=== PATIENT | female | born 2000 | race Caucasian/White ===

== ENCOUNTER 2020-09-20 14:53 | Emergency (ER) | payer BC, SELFPAY ==
[2020-09-20] VITALS (14 sets, daily range): BP systolic 103–117; BP diastolic 59–87; PULSE 67–91; RESP 11–21; TEMP 36.7; O2SAT 79–100
--- NOTE | ~2020-09-20 | CT_ITS ---
EXAMINATION: CT abdomen pelvis w con DATE: 09/20/2020 17:12 INDICATION: Lower abdominal pain TECHNIQUE: Computed tomography (CT) of the abdomen and pelvis was performed with 100 mL Omnipaque-350 intravenous contrast. Automated exposure control and iterative reconstruction technique were employe d. The dose-length product was 174.20 mGy-cm. COMPARISON: None FINDINGS: Lung bases are clear. Heart size is normal. No pericardial or pleural effusion. Liver, gallbladder, s pleen, pancreas, bilateral adrenal glands and kidneys are normal. Bowels including the appendix are n ormal. No obstruction or abnormal bowel wall thickening. Bladder, anteverted uterus and right adnexa are unremarkable. Peripheral enhancement at a 1.9 cm likely left ovarian corpus luteum cyst. Small am ount of likely physiologic free fluid in the cul-de-sac. No abscess or free intraperitoneal gas. No p athologically enlarged abdominal or pelvic lymphadenopathy. Bones are unremarkable. IMPRESSION: 1. 1.9 cm likely corpus luteum cyst at the left ovary with small amount of likely physiologic free fl uid in the pelvis. No other acute intra-abdominal/pelvic process. Reviewed, dictated and finalized at location A. IMPRESSION: 1. 1.9 cm likely corpus luteum cyst at the left ovary with small amount of like ly physiologic free fluid in the pelvis. No other acute intra-abdominal/pelvic process.
--- NOTE | ~2020-09-20 | US_ITS ---
EXAMINATION: US pelvic complete DATE: 09/20/2020 16:03 INDICATION: Pelvic pain Comparison:No prior studies for comparison TECHNIQUE: Multiple transabdominal sonographic images of the pelvis performed. Patient refused transv aginal examination. FINDINGS: The uterus measures 6.7 x 3 x 5 cm. The endometrial complex measures 6 mm. The right ovary measures 1.9 x 1.4 x 1.6 cm and the left ovary measures 3 x 2.2 x 2.5 cm. There are small follicles in each ovary. Normal doppler signal in both ovaries. There is no free fluid in the pelvis. There are no abnormal masses seen on either side. IMPRESSION: 1. Normal pelvic ultrasound. Reviewed, dictated and finalized at location B.
--- NOTE | 2020-09-20 15:13 | ED.GENADULT ---
HPI - General Adult General Chief complaint: Abdominal Pain Stated complaint: abdominal pain Time Seen by Provider: 09/20/20 15:05 Source: RN notes reviewed History of Present Illness HPI narrative: Patient presents emergency department from home for abdominal pain. Patient states symptoms initially began approximately 2 weeks ago and were intermittent have become more constant the pain is located in the bilateral lower abdomen described as sharp and stabbing denies any fevers or chills chest pain shortness of breath nausea vomiting diarrhea or any other symptoms states she is taken no pain medication for the symptoms today Related Data Home Medications Medication Instructions Recorded Confirmed ondansetron 09/20/20 topiramate 25 mg tablet 25 mg PO DAILY 09/20/20 Allergies Allergy/AdvReac Type Severity Reaction Status Date / Time ciprofloxacin Allergy Unknown Rash Verified 09/20/20 15:12 lidocaine Allergy Unknown Nausea and Verified 09/20/20 15:12 Vomiting Review of Systems Review of Systems: Narrative: Gen.: Denies fevers or chills ENT: Denies congestion Respiratory: Denies shortness of breath or cough CV: Denies chest pain or palpitations GI: See HPI denies burning, urgency, frequency or hematuria Musculoskeletal: Denies back pain or muscle pain Neuro: Denies numbness, tingling, weakness or focal weakness Skin: Denies rash Except as documented, all other systems reviewed and negative [facility] Past Medical History Medical History (Updated 09/20/20 @ 17:25 by Edgar Ventura DO) 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 Family History Family History Father Hypertension Social History Social History Smoking status: Never smoker Alcohol intake: current Substance use: never Substance use type: marijuana Gender identity (if verbalized by the patient): Female Exam Narrative: Exam Narrative: APPEARANCE: No acute distress, nontoxic, resting in bed HEENT: Normocephalic, atraumatic, OMM RESPIRATORY: No respiratory distress, clear to auscultation bilaterally with no rhonchi wheezing or rales CARDIOVASCULAR: RRR s murmur ABDOMINAL: Soft nondistended, tender palpation right lower quadrant left lower quadrant no tenderness left lower quadrant and right upper quadrant no rebound or guarding MUSCULOSKELETAl: Moves all extremities. No clubbing, cyanosis or edema. NEURO: Awake and alert. Following commands, speech normal, no focal deficits SKIN:: Warm, dry. Normal Color PSYCHIATRIC: Normal affect/mood Course Course Emergency Course: Patient states that they are feeling much better at this time. States abdominal pain has improved. Repeat abdominal exam shows the patient's abdomen to be soft with no surgical abdomen present. Discussed with patient results of workup and diagnosis. Discussed need for follow-up with primary care physician, reasons to return to the emergency department in proper use of medication. Patient understands and agrees to current treatment plan patient states she has an upcoming appointment Dr. Strauss Vital Signs Vital signs: Vital Signs Temperature 98.0 F 09/20/20 15:08 Pulse Rate 88 09/20/20 15:08 Respiratory Rate 18 09/20/20 15:08 Blood Pressure 115/63 09/20/20 15:08 Pulse Oximetry 98 09/20/20 15:08 Temperature 98.0 F 09/20/20 15:08 Pulse Rate 79 09/20/20 15:36 Respiratory Rate 21 H 09/20/20 15:36 Blood Pressure 109/64 09/20/20 15:36 Pulse Oximetry 99 09/20/20 15:36 Medical Decision Making MDM Narrative Medical decision making narrative: Patient's abdomen is soft without significant pain or signs of surgical abdomen on serial exams. Lab and x-ray evaluations are reviewed and patient is felt to be a reasonable candidate for outpatient management. Patient was instructed as to limitations of x-ray and laboratory evaluat
[2020-09-20 15:27] LABS: Basophils Absolute Auto 0.1 K/mm3 (0.0-0.1); Basophils Percent Auto 0.9 % (0.2-1.2); Eosinophils Absolute Auto 0.1 K/mm3 (0-0.3); Eosinophils Percent Auto 1.1 % (0-4.4); Hematocrit 42.2 % (37.0-47.0); Hemoglobin 14.3 g/dL (12.0-15.0); Immature Granulocyte Absolute 0.01 K/mm3 (0.00-0.031); Immature Granulocyte Percent A 0.2 % (0-0.5); Lymphocytes Percent Auto 30.5 % (18.3-44.2); Mean Corpuscular HGB Conc 33.9 g/dl (32-36); Mean Corpuscular Hemoglobin 30.5 pg (26-34); Mean Platelet Volume 9.7 fl (7.4-10.4); Monocytes Absolute Auto 0.5 K/mm3 (0.1-0.6); Monocytes Percent Auto 8.4 % (2.6-8.5); Neutrophils Absolute Auto 3.3 K/mm3 (1.3-6.7); Neutrophils Percent Auto 58.9 % (45.5-73.1); Platelet Count Result 241 k/mm3 (150-375); Red Blood Count 4.69 M/mm3 (4.2-5.4); Red Cell Distribution Width 12.7 % (11.5-14.5); White Blood Count 5.6 K/mm3 (4.5-10.0)
[2020-09-20 15:41] LABS: Alanine Aminotransferase 14 U/L (4-35); Albumin Level 4.8 g/dL (3.5-5.1); Alkaline Phosphatase 58 U/L (38-126); Anion Gap 10 mmol/L (8-16); Aspartate Amino Transferase 22 U/L (14-36); Bilirubin,Total 0.5 mg/dL (0.2-1.3); Blood Urea Nitrogen 11 mg/dL (7-17); Calcium 9.5 mg/dL (8.4-10.2); Carbon Dioxide 20 mmol/L (22-30); Chloride 110 mmol/L (98-107); Estimated CRCL calculation 78 ml/min; Estimated Glomerular Filt Rate > 60; Glucose 94 mg/dL (65-105); Lipase 185 U/L (23-300); Potassium 3.6 mmol/L (3.4-5.0); Sodium 140 mmol/L (137-145)
[2020-09-20 15:49] LABS: Add Urine Microscopic? YES; Appearance Urine Cloudy (Clear); Bacteria Urine Trace /hpf; Bilirubin Urine Negative (Negative); Blood Urine Negative (Negative); Color Urine Yellow (Yellow); Glucose Urine UA Negative (Negative); Ketones Urine Negative (Negative); Leukocyte Esterase Ur 1+ LEU/UL (Negative); Mucus Urine Heavy /lpf; Nitrate Urine Negative (Negative); Protein Urine 1+ mg/dL (Negative); RBC Urine 0-2 /hpf (0-2); Specific Grav Ur 1.024 (1.001-1.035); Squamous Epithelial Cell Urine Occasional /hpf (Few); Urobilinogen Urine Negative mg/dL (<2.0); WBC Urine 0-3 /hpf
[2020-09-20] MEDS: SODIUM CHLORIDE 0.9% IV 1,000 ML 999 ML IV CONT (15:52)
[2020-09-20] MEDS: KETOROLAC 30 MG/ML VIAL (*BKC) IV PUSH (15:52)
[2020-09-20] MEDS: NITROFURANTOIN MONOHYD MACROCR 100 MG CAP PO (17:47)
== END 2020-09-20 18:23 | disposition home or self-care (01) ==
PROVIDERS: Emergency Provider Emergency Medicine; PCP Family Medicine
DX: N83.202 Unspecified ovarian cyst, left side (principal); N39.0 Urinary tract infection, site not specified; Q79.60 Ehlers-Danlos syndrome, unspecified
CPT/HCPCS: 36415; 74177; 76856; 80053; 81001; 81025; 83690; 85025; 96361; 96374; 99284; A9270; J1885; J7030; Q9967

== ENCOUNTER 2020-10-31 09:49 | Outpatient (CLI) | payer BC, SELFPAY ==
--- NOTE | ~2020-10-31 | DEXA_ITS ---
Bone Density Report Name: Claudia Bryant Age: 20 Sex: Female Ethnicity: White Date of : 2000 Indication: asthma or emphysema; Referring Provider: ADONAY BOYLE Study: Bone densitometry was performed. Exam Date: October 31, 2020 Accession number: [id number] Bone Density: Region BMD T-score Z-score Classification AP Spine (L1-L4) 0.991 -0.5 -0.3 Normal Femoral Neck (Left) 0.633 -1.9 -1.9 Osteopenia Total Hip (Left) 0.735 -1.7 -1.7 Osteopenia Total Hip Bilateral Avg 0.742 -1.7 -1.7 Osteopenia Femoral Neck (Right) 0.650 -1.8 -1.8 Osteopenia Total Hip (Right) 0.748 -1.6 -1.6 Osteopenia World Health Organization criteria for BMD impression classify patients as: Normal (T-score at or above -1.0), Osteopenia (T-score between -1.0 and -2.5), or Osteoporosis (T-score at or below -2.5). 10-year Fracture Risk: FRAX not reported because: Premenopausal woman Clinical Information Provided by Patient: Has the following medical conditions: Asthma or Emphysema Patient maximum height was 64 Drinks caffeinated beverages Onset of menses at age 11 Premenopausal Number of children 0 Impression: The patient's bone mass is within expected range for age, gender and ethnicity. Discussion: BONE DENSITY IS WITHIN EXPECTED LIMITS FOR AGE, SEX AND RACE. Bone density is within expected limits for age, sex and race at all sites measured. The patient should follow a healthful lifestyle (good nutrition with adequate calcium and vitamin D, and appropriate weight-bearing exercise). Follow-Up: Consider repeating this study in 2 to 3 years to reassess this patient's status, or sooner if there is some new clinical indication. Reported by: MARCIA on 10/31/2020 10:22:00 AM. Reviewed, dictated and finalized at location A. MINDI
== END 2020-10-31 09:50 | disposition home or self-care (01) ==
LOC: ANHIMG 09:54
PROVIDERS: Visit Provider Obstetrics & Gynecology Gynecology
DX: M85.88 Other specified disorders of bone density and structure, other site (principal); R63.0 Anorexia; M85.852 Other specified disorders of bone density and structure, left thigh; M85.851 Other specified disorders of bone density and structure, right thigh
CPT/HCPCS: 77080

== ENCOUNTER 2022-11-11 12:31 | Outpatient (CLI) | payer BC, SELFPAY ==
[2022-11-11 13:10] LABS: Basophils Absolute Auto 0.1 K/mm3 (0.0-0.1); Basophils Percent Auto 1.2 % (0.2-1.2); Eosinophils Absolute Auto 0.2 K/mm3 (0-0.3); Eosinophils Percent Auto 2.6 % (0-4.4); Hematocrit 40.9 % (37.0-47.0); Hemoglobin 13.3 g/dL (12.0-15.0); Immature Granulocyte Absolute 0.02 K/mm3 (0.00-0.031); Immature Granulocyte Percent A 0.3 % (0-0.5); Lymphocytes Absolute Auto 1.95 K/mm3 (0.9-3.2); Lymphocytes Percent Auto 29.9 % (18.3-44.2); Mean Corpuscular HGB Conc 32.5 g/dl (32-36); Mean Corpuscular Hemoglobin 31.1 pg (26-34); Mean Corpuscular Volume 95.6 fl (80-100); Mean Platelet Volume 9.4 fl (7.4-10.4); Monocytes Absolute Auto 0.5 K/mm3 (0.1-0.6); Monocytes Percent Auto 8.3 % (2.6-8.5); Neutrophils Absolute Auto 3.8 K/mm3 (1.3-6.7); Neutrophils Percent Auto 57.7 % (45.5-73.1); Platelet Count Result 265 k/mm3 (150-375); Red Blood Count 4.28 M/mm3 (4.2-5.4); Red Cell Distribution Width 13.1 % (11.5-14.5); White Blood Count 6.5 K/mm3 (4.5-10.0)
--- NOTE | 2022-11-11 13:11 | ECG_ITS ---
Measurements Intervals [place] Rate: 67 P: 72 CT: 190 QRS: 92 QRSD: 84 T: 51 QT: 389 QTc: 413 Interpretive Statements SINUS RHYTHM RIGHT AXIS DEVIATION RSR' IN V1 OR V2, PROBABLY NORMAL VARIANT BASELINE WANDER- AVR, AVL, AVF BORDERLINE ECG NO PREVIOUS ECG AVAILABLE FOR COMPARISON Electronically Signed On 11-11-2022 13:36:19 CDT by Sylvain Hutton D.O.
[2022-11-11 13:25] LABS: Alanine Aminotransferase 22 U/L (6-35); Albumin Level 4.7 g/dL (3.5-5.1); Alkaline Phosphatase 53 U/L (38-126); Anion Gap 7 mmol/L (8-16); Aspartate Amino Transferase 30 U/L (14-36); Bilirubin,Total 0.4 mg/dL (0.2-1.3); Blood Urea Nitrogen 13 mg/dL (7-17); Calcium 9.2 mg/dL (8.4-10.2); Carbon Dioxide 28 mmol/L (22-30); Chloride 103 mmol/L (98-107); Cholesterol 173 mg/dL (0-200); Estimated Glomerular Filt Rate > 60; Glucose 109 mg/dL (65-110); HDL Direct 79 mg/dL; Potassium 3.8 mmol/L (3.4-5.0); Sodium 138 mmol/L (137-145); Triglycerides 35 mg/dL (<150)
[2022-11-11 13:35] LABS: LDL Cholesterol Direct 84 mg/dL
[2022-11-11 13:47] LABS: Vitamin D 25 Hydroxy 28.5 ng/mL
[2022-11-11 14:29] LABS: Folic Acid 9.9 ng/mL (2.76->20)
[2022-11-18 19:52] LABS: Insulin Level Total 16.1 uIU/mL (<=19.6)
== END 2022-11-11 12:32 | disposition home or self-care (01) ==
PROVIDERS: PCP Family Medicine; Visit Provider Psychiatry & Neurology Psychiatry
DX: R55 Syncope and collapse (principal); E78.5 Hyperlipidemia, unspecified; E53.8 Deficiency of other specified B group vitamins; E55.9 Vitamin D deficiency, unspecified; R94.31 Abnormal electrocardiogram [ECG] [EKG]
CPT/HCPCS: 36415; 80053; 80061; 82306; 82607; 82746; 83036; 83525; 84443; 85025; 93005

== ENCOUNTER 2023-05-10 14:20 | Emergency (ER) | payer BC, SELFPAY ==
--- NOTE | ~2023-05-10 | CT_ITS ---
EXAMINATION: CT soft tissue neck w con DATE: 05/10/2023 17:18 INDICATION: Left-sided sore throat. TECHNIQUE: Computed tomography (CT) of the neck was performed with 75 mL Omnipaque-350 intravenous co ntrast. Automated exposure control and iterative reconstruction technique were employed. The dose-rene gth product was 321.48 mGy-cm. COMPARISON: None FINDINGS: There are no pathologically enlarged lymph nodes. There is a 3 mm nodule left thyroid lobe, likely not clinically significant. The pharynx and larynx are unremarkable. The cervical carotid art eries are normal. The paranasal sinuses are clear. The mastoid air cells are normal. The cervical spi ne is unremarkable. IMPRESSION: 1. No etiology for the patient's symptoms. Reviewed, dictated and finalized at location A. OR PL SQL DEVELOPER
[2023-05-10 14:22] VITALS: BP 117/54; PULSE 81; RESP 16; TEMP 36.6; O2SAT 98
--- NOTE | 2023-05-10 15:42 | ED.GENADULT ---
[facility] - General Adult General Chief complaint: Unspecified Stated complaint: sore throat Time Seen by Provider: 05/10/23 15:32 Source: patient Mode of arrival: ambulatory Limitations: no limitations History of Present Illness HPI narrative: This is a 23-year-old female who presents to the ED with chief complaint of sore throat for the past couple of days. Reports that today while yawning she felt a tear in the throat. She reports pain and difficulty swallowing after this. Denies any symptoms of bleeding or recent vomiting. States she has been feeling fine otherwise. Reports being seen at urgent care and had a negative strep test. States it feels like the voice is a bit more muffled. Denies cough, congestion, chest pain, shortness of breath, fevers, chills, nausea, vomiting. Related Data Home Medications Medication Instructions Recorded Confirmed No Home Medications 11/18/21 11/18/21 Allergies Allergy/AdvReac Type Severity Reaction Status Date / Time ciprofloxacin Allergy Unknown Rash Verified 05/10/23 14:21 lidocaine Allergy Unknown Nausea and Verified 05/10/23 14:21 Vomiting Review of Systems Review of Systems: All systems as dictated in [facility] Past Medical History Medical History Body mass index (BMI) less than 16.5 Body mass index (BMI) less than 20 Depression with anxiety Justin-Danlos disease Family History Family History Father Hypertension Mother No problems noted. Sibling No problems noted. 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 HEAD: Normocephalic, atraumatic. EYES: PERRLA and EOMI. ENT: Nares clear, no rhinorrhea or epistaxis. Mucous membranes moist. Oropharynx without tonsillar hypertrophy exudate or other lesions. Floor the mouth is soft and intact. Mild left sided neck tenderness. No swelling, erythema in the area. Tolerating secretions. No trismus or drooling NECK: Supple. No adenopathy or masses. CHEST: No respiratory distress. Clear to auscultation. No wheezes rales or rhonchi HEART: Regular rate and rhythm. No murmur heard. Normal peripheral pulses. ABDOMEN: Soft, nontender, nondistended, normal active bowel sounds. MSK: Normal range of motion. No edema. SKIN: Warm, dry, no rash. NEURO: Alert and oriented x3. No focal deficits. PSYCH: Normal mood and affect. Course Vital Signs Vital signs: Vital Signs Temperature 97.8 F 05/10/23 14:22 Pulse Rate 81 05/10/23 14:22 Respiratory Rate 16 05/10/23 14:22 Blood Pressure 117/54 L 05/10/23 14:22 Pulse Oximetry 98 05/10/23 14:22 Temperature 97.8 F 05/10/23 14:22 Pulse Rate 81 05/10/23 14:22 Respiratory Rate 16 05/10/23 14:22 Blood Pressure 117/54 L 05/10/23 14:22 Pulse Oximetry 98 05/10/23 14:22 Medical Decision Making MDM Narrative Medical decision making narrative: This is a 23-year-old female who presents to the ED with chief complaint of dysphagia and occasional sore throat for the past couple of days. Recent strep swab negative. Vitals are normal. Exam reveals slightly muffled voice but otherwise intact. Tolerating secretions. No trismus or drooling. Low concern for deep space infection. CBC and CMP are unremarkable. Shared decision making to order CT scan to rule out a deep space infection that could be causing this dysphagia. CT soft tissue neck is negative for any acu
[2023-05-10 16:20] LABS: Basophils Percent Auto 0.9 % (0.2-1.2); Eosinophils Absolute Auto 0.1 K/mm3 (0-0.3); Eosinophils Percent Auto 1.4 % (0-4.4); Hematocrit 42.9 % (37.0-47.0); Hemoglobin 13.7 g/dL (12.0-15.0); Immature Granulocyte Absolute 0.01 K/mm3 (0.00-0.031); Immature Granulocyte Percent A 0.2 % (0-0.5); Immature Platelet Fraction Pct 5.4 % (0.9-11.2); Lymphocytes Absolute Auto 1.63 K/mm3 (0.9-3.2); Mean Corpuscular HGB Conc 31.9 g/dl (32-36); Mean Corpuscular Hemoglobin 31.5 pg (26-34); Mean Corpuscular Volume 98.6 fl (80-100); Monocytes Absolute Auto 0.4 K/mm3 (0.1-0.6); Monocytes Percent Auto 8.2 % (2.6-8.5); Neutrophils Absolute Auto 2.3 K/mm3 (1.3-6.7); Neutrophils Percent Auto 52.3 % (45.5-73.1); Platelet Count Result 152 k/mm3 (150-375); Red Blood Count 4.35 M/mm3 (4.2-5.4); Red Cell Distribution Width 12.6 % (11.5-14.5); White Blood Count 4.4 K/mm3 (4.5-10.0)
[2023-05-10 17:01] LABS: Alanine Aminotransferase 14 U/L (6-35); Albumin Level 4.3 g/dL (3.5-5.1); Alkaline Phosphatase 55 U/L (38-126); Anion Gap 10 mmol/L (8-16); Aspartate Amino Transferase 22 U/L (14-36); Bilirubin,Total 0.4 mg/dL (0.2-1.3); Blood Urea Nitrogen 7 mg/dL (7-17); Calcium 9.2 mg/dL (8.4-10.2); Carbon Dioxide 24 mmol/L (22-30); Chloride 106 mmol/L (98-107); Estimated CRCL calculation 103 ml/min; Estimated Glomerular Filt Rate > 60; Glucose 83 mg/dL (65-110); Potassium 4.1 mmol/L (3.4-5.0); Sodium 140 mmol/L (137-145)
[2023-05-10 17:45] VITALS: BP 115/65; PULSE 72; RESP 16; TEMP 36.1; O2SAT 100
[2023-05-10 17:47] VITALS: BP 124/86; PULSE 84; RESP 16; O2SAT 99
== END 2023-05-10 17:48 | disposition home or self-care (01) ==
PROVIDERS: Emergency Provider Physician Assistant; PCP Family Medicine
DX: R13.10 Dysphagia, unspecified (principal); Q79.60 Ehlers-Danlos syndrome, unspecified
CPT/HCPCS: 36415; 70491; 80053; 81025; 85025; 85055; 99284; Q9967

== ENCOUNTER 2023-06-04 09:03 | Outpatient (CLI) | payer BC, SELFPAY ==
--- NOTE | ~2023-06-04 | XR_ITS ---
EXAMINATION: XR UGIAC w barium swallow DATE: 06/04/2023 10:05 INDICATION: Other specified disease of the esophagus. TECHNIQUE: The patient drank thick barium, gas-producing crystals, and thin barium. A total of 1409 f luoroscopic spot images of the hypopharynx, esophagus, stomach and proximal small bowel were obtained . Fluoroscopy exposure time was 2.7 minutes. Total DAP was 8.761 mGycm^2 COMPARISON: None. FINDINGS: The pharynx is symmetric and without evidence of mass lesion or mucosal irregularity. The esophagus i s normal without mass or stricture. Esophageal motility is normal. There is no hiatal hernia. There w as no gastroesophageal reflux with provocative maneuvers. The stomach and proximal small bowel are no rmal. IMPRESSION: 1. Normal esophagram and upper GI study. Reviewed, dictated and finalized at location A. IST ADVISER
== END 2023-06-04 09:04 | disposition home or self-care (01) ==
PROVIDERS: PCP Family Medicine; Visit Provider Nurse Practitioner Family
DX: K22.89 Other specified disease of esophagus (principal)
CPT/HCPCS: 74246